=== PATIENT | male | born 1945 | race Caucasian/White ===

== ENCOUNTER 2017-10-25 10:57 | Emergency (ER) | payer OTHER, MEDICARE ==
[~2017-10-25] VITALS: Ht 188 cm; Wt 90.7 kg
[~2017-10-25 10:57] MED LIST: ASPIRIN81 M4 PO; ATORVASTATIN CA20 M1 PO; CARVEDILOL12.5 M1 PO; CITALOPRAM HBR20 MG PO; DIGOXIN250 MCG PO; HUMALOG KW100 UNIT/1 SC; LANTUS SOL100 UNIT/1 SC; LISINOPRIL10 M1 PO; OMEPRAZOLE20 M2 PO; PRESERVISION A1 EAC1 PO; VITAMIN D31000 UNI2 PO; ZOFRAN ODT4 M1 SL
[2017-10-25 11:15] VITALS: BP 117/61
--- NOTE | 2017-10-25 11:33 | ED GENERAL ADULT ---
History of Present Illness General Chief Complaint: Foot or Ankle Injury Stated Complaint: LEFT ANKLE PAIN Source: patient Exam Limitations: no limitations Vital Signs & Intake/Output Vital Signs & Intake/Output Vital Signs Date Time Temp Pulse Resp B/P B/P Pulse O2 O2 Flow FiO2 Mean Ox Delivery Rate 10/25 1115 98.1 77 18 117/61 98 Room Air Allergies Coded Allergies: No Known Allergies (07/27/17) Reconcile Medications Aspirin (Aspirin*) 81 MG TAB.CHEW 1 TAB PO DAILY HEART HEALTH (Reported) Atorvastatin Calcium 20 MG TABLET 1 TAB PO QPM CHOLESTEROL (Reported) Bifidobacterium Infantis (Align) 4 MG (1 BILLION CELL) CAPSULE 1 CAP PO DAILY GI (Reported) Carvedilol 12.5 MG TABLET 1 TAB PO BID HEART (Reported) Cholecalciferol (Vitamin D3) 1,000 UNIT TABLET 3 TAB PO DAILY VITAMIN SUPPORT (Reported) Citalopram Hydrobromide (Citalopram HBr) 20 MG TABLET 1 TAB PO QPM MENTAL HEALTH (Reported) Digoxin 250 MCG TABLET 1 TAB PO DAILY HEART (Reported) Insulin Glargine,Hum.rec.anlog (Lantus Solostar) 100 UNIT/ML (3 ML) INSULN.PEN 60 UNIT SC QPM DIABETES (Reported) Insulin Lispro (Humalog Kwikpen U-100) (Unknown Strength) INSULN.PEN (Unknown Dose) SC SEE SLIDING SCALE DIABETES (Reported) Lisinopril 10 MG TABLET 1 TAB PO DAILY HEART (Reported) Omeprazole 20 MG CAPSULE.DR 1 CAP PO DAILY GI (Reported) Vit C/E/Zn/Coppr/Lutein/Zeaxan (Preservision Areds 2 Softgel) 250-200-40 CAPSULE 1 CAP PO BID EYE (Reported) Triage Note: PT TO ER C/C LEFT ANKLE PAIN S/P FALL ON 10/18. PT UNABLE TO STATE WHY HE FELL, "MY SAYS I GET DAZED AND MY COLOR GETS BAD". WAS RECENTLY ON [place], SELF D/C YESTERDAY. SAW NEUROLOGIST YESTERDAY Triage Nurses Notes Reviewed? yes HPI: This is a 71-year-old male presenting emergency department with left ankle pain. Patient states that he fell on 18 October. Patient has history significant for coronary artery disease status post CABG, hypertension, unclear neurologic issue complicated by frequent and recurrent falls for which he is seen a neurologist and his outpatient provider multiple times. Patient states that he had one such episode on October while watching his granddaughter. He did not describe any prodrome, postictal period, states he did not fully lose consciousness nor did he strike his head. He denies any head pain, neck pain, chest pain, shortness of breath, fever/chills, nausea/vomiting, diarrhea, abdominal pain. He states that for the last few days, his left ankle has been painful and is worried that it is fractured. He has been able to bear weight with the assistance of a cane. He denies any other injuries or complaints. He states that he will follow-up with his primary doctor for the recurrent falls and in fact saw his neurologist yesterday for this problem. Past History Travel History Traveled to [place] past 21 day No Medical History Any Pertinent Medical History? see below for history Neurological: vertigo, INNER EAR ?SEIZURES EENT: INNER EAR PROBLEMS Cardiovascular: hypertension, hyperlipidemia, BYPASS DEFIB Respiratory: NONE Gastrointestinal: GERD Hepatic: NONE Renal: NONE Musculoskeletal: NONE Endocrine: diabetes Blood Disorders: NONE Cancer(s): prostate cancer [employer]/Reproductive: NONE Surgical History Surgical History: cabg, defib Psychosocial History What is your primary language [place]kin[place] Tobacco Use: Never used Family History Hx Contributory? No Review of Systems Review of Systems Constitutional: Reports: see HPI. EENTM: Reports: no symptoms. Respiratory: Reports: no symptoms. Cardiovascular: Reports: no symptoms. GI: Reports: no symptoms. Musculoskeletal: Reports: no symptoms. Skin: Reports: no symptoms. Neurological/Psychological: Reports: no symptoms. Hematologic/Endocrine: Reports: no symptoms. Physical Exam Physical Exam General Appearance: well developed/nourished, no apparent distress, alert, awake , comfortable Head: atraumatic, normal appearance Eyes: Bilateral: normal appearance. Ears, Nose, Throat: normal pharynx, normal ENT inspection Neck: normal inspection, supple, full range of motion Respiratory: normal breath sounds, chest non-tender, no respiratory distress Cardiovascular: regular rate/rhythm Gastrointestinal: soft, non-tender Back: normal inspection, normal range of motion Extremities: normal inspection, normal capillary refill, normal range of motion, no edema, mild swelling and ttp to the left lateral mal Neurologic/Psych: no motor/sensory deficits, awake, alert, oriented x 3, normal gait, normal mood/affect Skin: intact, normal color, warm/dry Core Measures ACS in differential dx? No CVA/TIA Diagnosis: No Sepsis Present: No Sepsis Focused Exam Completed? No Progress Differential Diagnoses I considered the following diagnoses in my evaluation of the patient: ankle fx, ankle sprain, doubt dislocation; in terms of the etiology of the patient's falls , this remains a mystery; could be arrhythmia, vagal, central nervous system cytology, disequilibrium, etc. Plan of Care: Orders Procedure Date/time Status XRY-TWO VIEW LEFT ANKLE 10/25 1122 Active Given that this patient has already followed up and been evaluated by his neurologist for the fall, and is currently systemically asymptomatic and well- appearing, will pursue imaging of the left ankle only at this time. Plan for discharge home with outpatient follow-up. X-rays equivocal for possible nondisplaced fracture. Given this finding, patient is recommended to have a splint placed to the left lower extremity. He states that this will make his been feeling more difficult and asks if he can use his orthopedic boot instead. Given that the ankle is not clinically fractured in the area described in the x-ray and that the finding is likely secondary to artifact, I think that this is probably reasonable approach. Patient states he will follow-up with primary doctor this week for reassessment. Initial ED EKG: none Departure Departure Time of Disposition: 1303 Disposition: HOME OR SELF CARE Condition: Stable Clinical Impression Primary Impression: Left ankle injury Referrals: Angela CORTES,Parviz Jo (PCP/Family) Additional Instructions: I recommend that you keep the ankle elevated when able, use ice wrapped in a towel for 20-30 minute increments 3-4 times per day, use Tylenol, 650 mg every 6 -8 hours as needed for pain, use a compression dressing such as an Freddie bandage, follow-up with your primary care doctor this week for reassessment. Departure Forms: Customer Survey General Discharge Information Critical Care Note Critical Care Note Critical Care Time: non-applicable
[2017-10-25] MEDS ORDERED: ALIGN4 M1 PO (12:24)
--- NOTE | 2017-10-25 12:44 | RADIOLOGY REPORT ---
EXAMINATION: XR ANKLE, LEFT CLINICAL INFORMATION: Ankle sprain. Swelling of the lateral ankle. COMPARISON: None TECHNIQUE: AP and lateral of the left ankle. FINDINGS: Soft tissues are swollen at the anterolateral aspect of the ankle, and ankle joint effusion is present. Bones have normal alignment. The talar dome is well-positioned within the ankle mortise. Ankle joint space and syndesmotic space are normal. No fractures are seen on the AP view. However, on the lateral view, a subtle oblique lucency projects over the distal fibula and tibia. It is uncertain whether this is due to artifact or represents a nondisplaced, oblique fracture in the distal fibular metadiaphysis. Tarsal bones are unremarkable. The visualized fifth metatarsal base is intact. IMPRESSION: - Post traumatic soft tissue swelling of the anterolateral ankle. - Possible nondisplaced, oblique fracture of the distal fibular metadiaphysis (based on a questionable finding on the lateral projection). Alternatively, the finding in question could be artifactual from osseous overlap. Oblique views of the ankle might be helpful.
== END 2017-10-25 13:19 ==
LOC: ERH 10:57
DX: S99.912A Unspecified injury of left ankle, initial encounter (principal); X58.XXXA Exposure to other specified factors, initial encounter; Y92.9 Unspecified place or not applicable; Y93.9 Activity, unspecified
CPT/HCPCS: 73600-LT